=== PATIENT | female | born 1965 | race Caucasian/White ===

== ENCOUNTER 2018-07-04 09:54 | Emergency (ER) | payer MEDICAID, OTHER ==
[~2018-07-04] VITALS: Ht 162.6 cm; Wt 53.0 kg
[2018-07-04] MEDS: HYDROcodone/acetaminophen 10/325mg tab PO ONE (11:30)
[2018-07-04 12:04] VITALS: BP 128/91
== END 2018-07-04 12:07 | disposition home or self-care (01) ==
LOC: ER 09:54
DX: G89.29 Other chronic pain (principal); R07.89 Other chest pain; F12.10 Cannabis abuse, uncomplicated; Z88.1 Allergy status to other antibiotic agents; Z88.8 Allergy status to other drugs, medicaments and biological substances; Z88.5 Allergy status to narcotic agent; Z90.49 Acquired absence of other specified parts of digestive tract
CPT/HCPCS: 71046; 93005; 99283

== ENCOUNTER 2021-07-29 11:18 | Emergency (ER) | payer MEDICAID, OTHER ==
[~2021-07-29] VITALS: Ht 162.6 cm; Wt 57.4 kg
[2021-07-29] MEDS ORDERED: HYDROcodone/acetaminophen 10/325mg tab PO ONE (14:30)
[2021-07-29] MEDS ORDERED: ketorolac trometh. 30mg/ml inj. IM ONE (14:30)
[2021-07-29] MEDS ORDERED: HYDR-3972 PO (15:40)
[2021-07-29 15:58] VITALS: BP 140/78
== END 2021-07-29 16:01 | disposition home or self-care (01) ==
LOC: ER 11:19
DX: R68.84 Jaw pain (principal); M54.50 Low back pain, unspecified; G89.29 Other chronic pain; M79.604 Pain in right leg; M79.605 Pain in left leg; F12.90 Cannabis use, unspecified, uncomplicated; Z90.89 Acquired absence of other organs; Z98.890 Other specified postprocedural states; Z88.1 Allergy status to other antibiotic agents; Z88.5 Allergy status to narcotic agent; Z88.6 Allergy status to analgesic agent; Z79.899 Other long term (current) drug therapy
CPT/HCPCS: 72100; 72170; 96372; 99284; J1885

== ENCOUNTER 2021-08-06 13:16 | Emergency (ER) | payer MEDICAID, OTHER ==
[~2021-08-06] VITALS: Ht 165.1 cm; Wt 56.0 kg
[~2021-08-06 13:16] MED LIST: HYDR-3972 PO
[2021-08-06 13:35] VITALS: BP 136/55
[2021-08-06] MEDS ORDERED: HYDROcodone/acetaminophen 5mg/325mg tablet PO ONE (15:00)
[2021-08-06] MEDS ORDERED: orphenadrine citrate 60mg/2ml inj. IM ONE (15:00)
[2021-08-06] MEDS ORDERED: ketorolac trometh inj. 60 MG/2 ML VIAL IM ONE (15:00)
[2021-08-06] MEDS ORDERED: ORPH100T2 PO (15:03)
[2021-08-06] MEDS ORDERED: NAPR-56 PO (15:03)
[2021-08-06] MEDS ORDERED: HYDR-3965 PO (15:03)
== END 2021-08-06 15:30 | disposition home or self-care (01) ==
LOC: ER 13:17
DX: M54.42 Lumbago with sciatica, left side (principal); M54.41 Lumbago with sciatica, right side; M62.830 Muscle spasm of back; G89.29 Other chronic pain; F12.90 Cannabis use, unspecified, uncomplicated; Z90.89 Acquired absence of other organs; Z98.890 Other specified postprocedural states; Z88.1 Allergy status to other antibiotic agents; Z88.6 Allergy status to analgesic agent; Z88.5 Allergy status to narcotic agent; Z79.899 Other long term (current) drug therapy
CPT/HCPCS: 72100; 96372; 99284; J1885; J2360

== ENCOUNTER 2021-08-09 20:54 | Emergency (ER) | payer MEDICAID ==
[~2021-08-09] VITALS: Ht 162.6 cm; Wt 56.0 kg
[~2021-08-09 20:54] MED LIST changes: +HYDR-3965 PO; +NAPR-56 PO; +ORPH100T2 PO
[2021-08-09 21:03] VITALS: BP 119/55
[2021-08-10] MEDS ORDERED: HYDR-3965 PO (00:03)
[2021-08-10] MEDS ORDERED: GABA100C PO (00:03)
[2021-08-10] MEDS ORDERED: gabapentin 100mg capsule PO ONE (00:05)
[2021-08-10] MEDS ORDERED: HYDROcodone/acetaminophen 5mg/325mg tablet PO ONE (00:05)
[2021-08-10] MEDS ORDERED: ketorolac trometh. 30mg/ml inj. IM ONE (00:05)
== END 2021-08-10 00:30 | disposition home or self-care (01) ==
LOC: ER 20:55
DX: M54.50 Low back pain, unspecified (principal); G89.29 Other chronic pain; F12.90 Cannabis use, unspecified, uncomplicated; Z90.89 Acquired absence of other organs; Z98.890 Other specified postprocedural states; Z88.1 Allergy status to other antibiotic agents; Z88.6 Allergy status to analgesic agent; Z88.5 Allergy status to narcotic agent; Z79.899 Other long term (current) drug therapy
CPT/HCPCS: 96372; 99283; J1885

== ENCOUNTER 2021-09-08 19:20 | Emergency (ER) | payer MEDICAID ==
[~2021-09-08] VITALS: Ht 162.6 cm; Wt 56.0 kg
[~2021-09-08 19:20] MED LIST changes: +GABA100C PO; -HYDR-3972 PO; -NAPR-56 PO
--- NOTE | 2021-09-08 20:45 | NUR ---
Pt presents to the ed with c/o left jaw pain times two days; the pt states she's been dealing with some recent family issues, which brought on stress and anxiety; she states she's been "grinding" her teeth, which resulted in headaches, and pain in her left TMJ. She denies other symptoms when asked. The pt is a/o, nad, skin w/d.
[2021-09-08] MEDS ORDERED: cyclobenzaprine 10mg tablet PO ONE (21:00)
[2021-09-08] MEDS ORDERED: ketorolac trometh. 30mg/ml inj. IM ONE (21:00)
--- NOTE | 2021-09-08 21:02 | NUR ---
PATIENT PRESENTS TO THE ER WITH COMPLAINTS OF LOWER JAW PAIN THAT STARTED ABOUT 4/5 DAYS AGO .DENIES ANY FALLS OR TRAUMA TO THE JAW. SHE STATES THAT SHE JUST LOST HER. SHE STARTED GRINDING HER TEETH, SHE HAS UPPER DENTURES IN PLACE.
[2021-09-08 21:05] VITALS: BP 137/62
[2021-09-08] MEDS ORDERED: IBUP-1985 PO (21:05)
== END 2021-09-08 21:16 | disposition home or self-care (01) ==
LOC: ER 19:21
DX: R68.84 Jaw pain (principal); F41.9 Anxiety disorder, unspecified; K08.89 Other specified disorders of teeth and supporting structures; G89.29 Other chronic pain; F12.90 Cannabis use, unspecified, uncomplicated; Z90.89 Acquired absence of other organs; Z98.890 Other specified postprocedural states; Z88.1 Allergy status to other antibiotic agents; Z88.5 Allergy status to narcotic agent; Z88.6 Allergy status to analgesic agent; Z79.899 Other long term (current) drug therapy
CPT/HCPCS: 96372; 99284; J1885